=== PATIENT | male | born 1960 | race African-American/Black ===

== ENCOUNTER 2019-07-16 19:44 | Emergency (ER) | payer OTHER, MEDICAID ==
[~2019-07-16] VITALS: Ht 172.7 cm; Wt 64.0 kg
[2019-07-16] MEDS ORDERED: SODIUM CHLORIDE 0.9% 1,000 ML IV ONE (20:40)
[2019-07-16] MEDS ORDERED: LORAZEPAM 2MG/ML CPJ IV ONE (20:45)
[2019-07-16] MEDS ORDERED: OLANZAPINE 10 MG/VIAL IM ONE (20:45)
[2019-07-16 21:05] LABS: BASOPHILS % 0.7 % (0.0-2.0); HEMATOCRIT. 42.6 % (42.0-52.0); HEMOGLOBIN. 14.4 g/dL (14.0-18.0); LYMPHOCYTES % 22.8 % (20.0-50.0); MEAN CORPUSCULAR HEMOGLOBIN 32.4 pg (28.0-32.0); MEAN CORPUSCULAR VOLUME 95.9 fL (80.0-94.0); MEAN PLATELET VOLUME 9.2 fl (7.4-10.4); MONOCYTES % 10.3 % (2.0-8.0); NEUTROPHILS % 64.2 % (40.0-76.0); PLATELET 218 x1000/uL (130-400); RED BLOOD CELL COUNT 4.44 mill/uL (4.7-6.1); RED CELL DISTRIBUTION WIDTH 16.8 % (11.6-14.6)
[2019-07-16 21:09] LABS: CHLORIDE 106 mEq/L (98-107)
[2019-07-16 21:13] LABS: ETHANOL BLOOD 72 mg/dL
[2019-07-16 21:18] LABS: CREATINE KINASE 325 IU/L (39-308)
[2019-07-16 21:21] LABS: CREATINE KINASE MB FRACTION 2.4 ng/mL (0.5-3.6)
[2019-07-16 21:32] LABS: CLARITY URINE CLEAR (CLEAR); COLOR URINE YELLOW (YELLOW); KETONES URINE NEGATIVE (NEGATIVE); LEUKOCYTE ESTERASE URINE NEGATIVE (NEGATIVE); NITRITE URINE NEGATIVE (NEGATIVE); OCCULT BLOOD URINE NEGATIVE (NEGATIVE); PROTEIN URINE 2+ (NEGATIVE); SPECIFIC GRAVITY URINE 1.014 (1.005-1.030); UROBILINOGEN URINE 0.2 E.U./dL (0.2-1.0)
[2019-07-16 21:52] LABS: *AMPHETAMINES SCREEN URINE NEGATIVE (NEGATIVE); *BARBITURATES SCREEN URINE NEGATIVE (NEGATIVE); *BENZODIAZEPINES SCREEN URINE NEGATIVE (NEGATIVE); *COCAINE SCREEN URINE PRESUMTIVE POSITIVE (NEGATIVE)
[2019-07-16 21:53] LABS: CANNABINOID URINE SCREEN PRESUMTIVE POSITIVE (NEGATIVE); METHADONE URINE SCREEN NEGATIVE (NEGATIVE); OPIATES URINE SCREEN NEGATIVE (NEGATIVE); PHENCYCLIDINE URINE SCREEN PRESUMTIVE POSITIVE (NEGATIVE)
[2019-07-17 06:11] VITALS: BP 141/72
== END 2019-07-17 06:22 | disposition home or self-care (01) ==
LOC: ER 19:44 → EDBD 19:44 → ER 07-17 06:22
DX: T40.5X1A Poisoning by cocaine, accidental (unintentional), initial encounter (principal); G92 Toxic encephalopathy; B59 Pneumocystosis; M62.82 Rhabdomyolysis; F19.10 Other psychoactive substance abuse, uncomplicated; Y92.89 Other specified places as the place of occurrence of the external cause
CPT/HCPCS: 36415; 80053; 80305; 80320; 81003; 82550; 82553; 83690; 84443; 84484; 85025; 93005; 96372; 96374; 99285; J2060; J3490; J7030; G0480

== ENCOUNTER 2019-11-01 12:30 | Emergency (ER) | payer MEDICAID ==
[~2019-11-01] VITALS: Ht 177.8 cm; Wt 90.0 kg
[2019-11-01] MEDS ORDERED: SODIUM CHLORIDE 0.9% 1,000 ML IV ONE (12:37)
[2019-11-01 13:02] LABS: BASOPHILS % 1.4 % (0.0-2.0); EOSINOPHILS % 7.1 % (0.0-5.0); HEMATOCRIT. 42.1 % (42.0-52.0); HEMOGLOBIN. 14.4 g/dL (14.0-18.0); LYMPHOCYTES % 30.5 % (20.0-50.0); MEAN CORPUSCULAR HEMOGLOBIN 33.4 pg (28.0-32.0); MEAN CORPUSCULAR VOLUME 97.9 fL (80.0-94.0); MEAN PLATELET VOLUME 8.8 fl (7.4-10.4); MONOCYTES % 14.1 % (2.0-8.0); NEUTROPHILS % 46.9 % (40.0-76.0); PLATELET 235 x1000/uL (130-400); RED CELL DISTRIBUTION WIDTH 16.6 % (11.6-14.6)
[2019-11-01 13:08] LABS: CHLORIDE 107 mEq/L (98-107)
[2019-11-01 13:09] LABS: PROTHROMBIN TIME 10.8 sec (9.6-11.0)
[2019-11-01] MEDS ORDERED: MECLIZINE 25MG TABLET PO ONE (14:00)
[2019-11-01] MEDS ORDERED: KETOROLAC 30MG/ML VIAL IV ONE (15:30)
[2019-11-01 15:47] VITALS: BP 170/105
== END 2019-11-01 16:25 | disposition home or self-care (01) ==
LOC: ER 12:30
DX: R42 Dizziness and giddiness (principal); I10 Essential (primary) hypertension
CPT/HCPCS: 36415; 70450; 80053; 83605; 84484; 85025; 85610; 93005; 96361; 96374; 99285; J1885; J7030; J8597